=== PATIENT | female | born 2005 ===

== ENCOUNTER 2025-08-05 05:53 | Inpatient (IN) | payer OTHER ==
[2025-08-05] VITALS (8 sets, daily range): BP systolic 83–119; BP diastolic 53–79
[~2025-08-05] VITALS: Ht 160 cm; Wt 71.7 kg
[2025-08-05] MEDS ORDERED: RINGERS SOLUTION,LACTATED 1,000 ML IV SCH (06:00)
[2025-08-05] MEDS ORDERED: IRON236 MG PO (07:31)
[2025-08-05] MEDS ORDERED: PRENATA CHEWAB1 EACH PO (07:31)
[2025-08-05 07:38] LABS: URINE APPEARANCE Clear; URINE BILIRRUBIN Negative (NEGATIVE); URINE BLOOD Negative; URINE COLOR Yellow; URINE GLUCOSE Negative (NEGATIVE); URINE KETONE Negative (NEGATIVE); URINE LEUKOCYTE Moderate; URINE NITRATE Negative; URINE PROTEIN Trace (NEGATIVE); URINE UROBILINOGEN 0.2 E.U./dl
[2025-08-05 07:45] LABS: URINE EPITHELIAL CELLS 52.7 uL (0.0-38.8); URINE RBC 5.3 uL (0.0-20.8); URINE WBC 231.9 uL (0.0-23.2)
[2025-08-05 07:53] LABS: BASO % 0.4 % (0.1-1.2); EOS # 0.30 (0.04-0.54); EOS % 2.5 % (0.7-7.0); LYMPH # 1.96 (1.18-3.74); LYMPH % 16.5 % (19.3-53.1); MEAN PLATELET VOLUME 11.00 fl (9.4-12.4); MONO # 0.79 (0.24-0.82); MONO % 6.7 % (4.7-12.5); NEUT # 8.70 (1.56-6.13); NEUT % 73.3 % (34.0-71.1); RED CELL DISTRIBUTION WIDTH 13.3 % (11.6-14.4)
[2025-08-05 07:59] LABS: URINE CAST 0.14 uL (0.0-1.40)
[2025-08-05 08:16] LABS: INR < 0.93
[2025-08-05 08:24] LABS: ALT/SGPT 22.0 U/L (12-78); AST/SGOT 18.0 U/L (15-37); BILIRUBIN TOTAL 0.33 mg/dL (0.3-1.2); BUN CREA RATIO 18.0 (7.0-25.0); CREATININE SERUM 0.56 mg/dL (0.55-1.02); GFR 135.37; GLOBULINA 4.0 G/DL (2.4-3.5); GLUCOSE FASTING 94.0 mg/dL (65-100); OSMOLALITY SERUM 278.0 MOSM/KG (275-295)
[2025-08-05 09:36] LABS: RH POSITIVE
[2025-08-05] MEDS ORDERED: PROMETHAZINE HCL 25 MG/ML AMPUL ONE (12:06)
[2025-08-05] MEDS ORDERED: OXYTOCIN 500 ML IV SCH (12:30)
[2025-08-05] MEDS ORDERED: PROMETHAZINE HCL 50 MG/ML AMPUL IV ONE (12:30)
[2025-08-05] MEDS ORDERED: MORPHINE SULFATE 4 MG/ML CARTRIDGE IV ONE (12:30)
[2025-08-05] MEDS ORDERED: PROMETHAZINE HCL 25 MG/ML AMPUL IV ONE (12:45)
[2025-08-05] MEDS ORDERED: OXYTOCIN 20 UNITS/1000ML RL PIGGYBAG IV ONE (13:59)
[2025-08-05] MEDS ORDERED: CHLORHEXIDINE GLUCONATE 120 ML BOTTLE TOP ONE (13:59)
[2025-08-05] MEDS ORDERED: LIDOCAINE HCL 1% 10ML VIAL ONE (13:59)
[2025-08-05] MEDS ORDERED: ERYTHROMYCIN BASE OPHT 1GM EACH TUBE OP ONE (13:59)
[2025-08-05] MEDS ORDERED: CHLORHEXIDINE GLUCONATE 120 ML BOTTLE TP SCH (14:45)
[2025-08-05] MEDS ORDERED: OXYTOCIN 1,000 ML IV SCH (14:45)
[2025-08-06] VITALS: BP 98/60
[2025-08-06 08:00] VITALS: BP 103/71
[2025-08-06 16:00] VITALS: BP 103/61
[2025-08-07 00:06] VITALS: BP 103/66
[2025-08-07 08:49] VITALS: BP 104/65
== END 2025-08-07 12:14 | disposition home or self-care (01) | DRG 807 ==
LOC: LDR 05:53 → OB/GYN 05:53
PROVIDERS: ADMIT Obstetrics & Gynecology; ATTEND Obstetrics & Gynecology
PROC: 10E0XZZ Delivery of Products of Conception, External Approach (ICD-10-PCS; principal; 2025-08-05)
PROC: 0KQM0ZZ Repair Perineum Muscle, Open Approach (ICD-10-PCS; 2025-08-05)
PROC: 4A1HXCZ Monitoring of Products of Conception, Cardiac Rate, External Approach (ICD-10-PCS; 2025-08-05)
DX: O70.1 Second degree perineal laceration during delivery (principal); Z37.0 Single live birth; Z3A.37 37 weeks gestation of pregnancy